=== PATIENT | female | born 1945 | race Two or more races ===

== ENCOUNTER 2024-12-16 11:44 | Emergency (ER) | payer OTHER ==
[~2024-12-16] VITALS: Ht 157.5 cm; Wt 95.4 kg
[2024-12-16 11:58] VITALS: TEMP 98.5
[2024-12-16 11:59] VITALS: BP 144/72; PULSE 71; RESP 17; RESP 18; O2SAT 97
[2024-12-16 12:27] LABS: Basophils # (auto) 0 10 ^3/uL (0-0.2); Basophils % (auto) 0.5 % (0.0-2.0); Eosinophils # (auto) 0.1 10 ^3/uL (0-0.8); Eosinophils % (auto) 1.9 % (0.0-7.0); Hematocrit 40.9 % (36.0-46.0); Hemoglobin 13.9 g/dL (12.2-16.2); Lymphocytes # (auto) 0.9 10 ^3/uL (0.4-5.4); Lymphocytes % (auto) 15.5 % (10.0-50.0); Mean Corpuscular Hemoglobin 31.9 pg (28.0-32.0); Mean Corpuscular Hgb Conc. 33.9 g/dL (32.0-36.0); Monocytes # (auto) 0.6 10 ^3/uL (0-1.3); Monocytes % (auto) 11.4 % (0.0-12.0); Neutrophils % (auto) 70.7 % (37.0-80.0); Platelet Count (auto) 259 10^3/uL (140-450); Red Blood Cells 4.35 10^6/uL (4.0-5.20); Red Cell Distribution Width 13.6 % (11.8-14.3); White Blood Cell 5.6 10^3/uL (4.4-10.8)
--- NOTE | 2024-12-16 12:28 | DVH ---
CHEST RADIOGRAPH Indication: CHEST PAIN Technique: Single frontal view of the chest was obtained COMPARISON: None FINDINGS: Lines and Tubes: None Lungs: Clear Pleura: No effusion. No pneumothorax. Cardiomediastinal contours: Unremarkable Bones: Unremarkable IMPRESSION: No acute disease.
[2024-12-16 12:37] LABS: Chloride 104 mmol/L (98-107); Potassium 3.6 mmol/L (3.5-5.1); Sodium 138 mmol/L (136-145)
[2024-12-16 12:38] LABS: Anion Gap 6 (5-15); Calcium 9.4 mg/dL (8.7-10.4); Carbon Dioxide 28 mmol/L (20-31)
[2024-12-16 12:43] LABS: BUN/Creatinine Ratio 19.4 (10.0-20.0); Blood Urea Nitrogen 14 mg/dL (9-23); Glucose 117 mg/dL (74-106)
[2024-12-16 13:25] VITALS: PULSE 69
--- NOTE | 2024-12-16 13:25 | ED.PDOC ---
HPI Comments 79-year-old female brought in by EMS presents with a chief complaint of chest pain x onset this morning with associated SOB upon exertion. Patient reports that her chest pain is described as pressure/tightness. Patient mentions that she is from [place] where [place] and is not used to being so high in altitude. Patient reports that she also feels anxious and does not know if her anxiety is contributing to it. Chief Complaint: Chest Pain Time Seen by MD: 13:15 Reviewed Notes: Medications, Allergies Allergies: Coded Allergies: Morphine (Verified Allergy, Unknown, 12/16/24) Information Source: Patient Mode of Arrival: EMS Severity: Moderate Timing: Hours Duration: Since onset Prehospital treatment: None Location: Substernal Radiation: No Radiation Quality: Pressure Onset: At Rest, With Light Exertion Cardiac Risk Factors: None PE Risk Factors: None History of: None Past Medical History PAST MEDICAL HISTORY: Denies Surgical History: Denies all surgeries COMMUNITY FUNDRAISER History: Denies all COMMUNITY FUNDRAISER Hx Family History Family History: Reviewed,noncontributory to illness Social History Smoker: Non-Smoker Alcohol: Denies ETOH Use Drugs: Denies Drug Use Lives In: Home Constitutional: denies: chills, diaphoresis, fatigue, fever, malaise, sweats, weakness, others EENTM: denies: blurred vision, double vision, ear bleeding, ear discharge, ear drainage, ear pain, ear ringing, eye pain, eye redness, hearing loss, mouth pain, mouth swelling, nasal discharge, nose bleeding, nose congestion, nose pain, photophobia, tearing, throat pain, throat swelling, voice changes, others Respiratory: reports: SOB with excertion; denies: cough, hemoptysis, orthopnea, SOB at rest, shortness of breath, stridor, wheezing, others Cardiovascular: reports: chest pain; denies: dizzy spells, diaphoresis, Dyspnea on exertion, edema, irregular heart beat, left arm pain, lightheadedness, palpitations, PND, syncope, others Gastrointestinal: denies: abdomen distended, abdominal pain, blood streaked bowels, constipated, diarrhea, dysphagia, difficulty swallowing, hematemesis, melena, nausea, poor appetite, poor fluid intake, rectal bleeding, rectal pain, vomiting, others Genitourinary: denies: abnormal vagina bleeding, burning, dyspareunia, dysuria, flank pain, frequency, hematuria, incontinence, pain, , vagina discharge, urgency, others Neurological: denies: dizziness, fainting, headache, left sided numbness, left sided weakness, numbness, paresthesia, pre-existing deficit, right sided numbne ss, right sided weakness, seizure, speech problems, tingling, tremors, weakness, others Musculoskeletal: denies: back pain, gout, joint pain, joint swelling, muscle pain, muscle stiffness, neck pain, others Integumetry: denies: bruises, change in color, change in hair/nails, dryness, laceration, lesions, lumps, rash, wounds, others Allergic/Immunocompromised: denies: Difficulty Healing, Frequent Infections, Hives, Itching, others Hematologic/Lymphatic: denies: anemia, blood clots, easy bleeding, easy bruising, swollen glands, others Endocrine: denies: excessive hunger, excessive sweating, excessive thirst, excessive urination, flushing, intolerance to cold, intolerance to heat, unexplained weight gain, unexplained weight loss, others Psychiatric: denies: anxiety, bipolar disorder, depression, hopeless, panic disorder, schizophrenia, sleepless, suicidal, others All Other Systems: Reviewed and Negative Physical Exam General Appearance: No Apparent Distress, Normal HEENT: Normal ENT Inspection Neck: NOT DONE Respiratory: Chest Non-Tender, Lungs Clear, No Accessory Muscle Use, No Respiratory Distress, Normal Breath Sounds Cardiovascular: No Edema, No JVD, No Murmur, No Gallop, Normal Peripheral Pulses, Regular Rate/Rhythm Breast Exam: Deferred Gastrointestinal: Non Tender, Soft Genitalia: Deferred Pelvic: Deferred Rectal: Deferred Extremities: No calf tenderness, Normal capillary refill, Normal inspection, Normal range of motion, Non-tender, No pedal edema Neurologic: Alert, exerciser II-XII nml as Tested, No Motor Deficits, Normal Affect, Normal Mood, No Sensory Deficits Cerebellar Function: Normal Reflexes: NOT DONE Skin: Dry, Normal Color Lymphatic: NOT DONE EKG EKG : Pulse Rate (adult): 69 [place]: Normal Cardiac Rhythm: NSR Block: RBBB Hypertrophy: None ST: Normal Was a procedure done? Was a procedure done?: No CP Differential Dx Differential Diagnosis: A-fib, A-Flutter, Anxiety / Panic Attack, AV Block 1st Degree, AV Block 2nd Degree, Electrolyte Disorder, Hypoxia, MAT, Pacemaker Malfunction, Pulmonary Embolus, PVC's, Renal Failure, Torsades De Pointes, V-Fib X-Ray, Labs, Meds, VS Vital Signs Date Time Temp Pulse Resp B/P (MAP) Pulse Ox O2 Delivery O2 Flow Rate FiO2 12/16/24 13:25 69 12/16/24 11:59 98.3 72 18 144/72 (96) 97 12/16/24 11:59 71 17 97 Room Air* 0 21 12/16/24 11:58 98.5 71 17 155/67 (96) 97 98.5 12/16/24 11:49 70 Lab Test 12/16/24 12:15 12/16/24 12:06 Range/Units Troponin I High Sensitivity < 3 L 3 L </=34 ng/L White Blood Count 5.6 4.4-10.8 10^3/uL Red Blood Count 4.35 4.0-5.20 10^6/uL Hemoglobin 13.9 12.2-16.2 g/dL Hematocrit 40.9 36.0-46.0 % Mean Corpuscular Volume 94.0 80.0-100.0 fL Mean Corpuscular Hemoglobin 31.9 28.0-32.0 pg Mean Corpuscular Hemoglobin Concent 33.9 32.0-36.0 g/dL Red Cell Distribution Width 13.6 11.8-14.3 % Platelet Count 259 140-450 10^3/uL Mean Platelet Volume 8.1 6.9-10.8 fL Neutrophils (%) (Auto) 70.7 37.0-80.0 % Lymphocytes (%) (Auto) 15.5 10.0-50.0 % Monocytes (%) (Auto) 11.4 0.0-12.0 % Eosinophils (%) (Auto) 1.9 0.0-7.0 % Basophils (%) (Auto) 0.5 0.0-2.0 % Neutrophils # (Auto) 4.0 1.6-8.6 10 ^3/uL Lymphocytes # (Auto) 0.9 0.4-5.4 10 ^3/uL Monocytes # (Auto) 0.6 0-1.3 10 ^3/uL Eosinophils # (Auto) 0.1 0-0.8 10 ^3/uL Basophils # (Auto) 0 0-0.2 10 ^3/uL Nucleated Red Blood Cells 0.0 % Sodium Level 138 136-145 mmol/L Potassium Level 3.6 3.5-5.1 mmol/L Chloride Level 104 98-107 mmol/L Carbon Dioxide Level 28 20-31 mmol/L Anion Gap 6 5-15 Blood Urea Nitrogen 14 9-23 mg/dL Creatinine 0.72 0.550-1.02 mg/dL Glomerular Filtration Rate Calc 86 >90 mL/min BUN/Creatinine Ratio 19.4 10.0-20.0 Serum Glucose 117 H 74-106 mg/dL Calcium Level 9.4 8.7-10.4 mg/dL X-Ray, Labs, Meds, VS Comment This 75-year-old female who is visiting the area from [place]. She states she was sensitive to altitude and is not used to the altitude here. She feels somewhat nauseous, dizzy and short of breath. She he was no other complaints such as fever, chills, sweats, nausea or vomiting. Her workup here has benign including 2- tropes. Believe the patient was having difficulty with the altitude. She had provided 1 dose of acetazolamide and then discharged home. She would follow up with the PCP in next 1 2 days return to the ER for any new/worse/worsening symptoms. Time of 1ST Reevaluation: 13:45 Reevaluation 1ST: Unchanged Patient Education/Counseling: Diagnosis, Treatment, Prognosis Family Education/Counseling: Diagnosis, Treatment, Prognosis Departure 1 Departure Time of Disposition: 14:19 Impression: Primary Impression: Chest pain Additional Impression: Altitude sickness Disposition: 01 HOME / SELF CARE / HOMELESS Condition: Good Critical Care Note Critical Care Time?: No Stability Stability form required: No Heart Score Heart Score: Heart Score Response (Comments) Value History Slightly Suspicious 0 EKG Normal 0 Age >65 2 Risk Factors 1 or 2 risk factors 1 Troponin Normal limit 0 Total 3 I personally scribed for ALEX MCKEON MD ([email or web address]) on 12/16/24 at 13:25. Electronically submitted by Mina Del Angel ([email or web address]). ALEX MCKEON MD Dec 16, 2024 13:25
[2024-12-16] MEDS: acetaZOLAMIDE 250 MG TAB PO ONE (14:58)
--- NOTE | 2024-12-16 18:40 | ECG ---
[facility] Test Date: 2024-12-16 Test Time: 12:50:13 Pat Name: CUCA FITZGERALD Department: ED Room: Gender: F Lookback Coordinator: RANDY : 1945 Requested By: SHAY PASCUAL Order Number: [id number] Reading MD: Shawn Benitez Measurements Intervals [place] Rate: 69 P: 68 MO: 174 QRS: 11 QRSD: 144 T: 19 QT: 419 QTc: 449 Interpretive Statements Sinus rhythm Right bundle branch block Electronically Signed On 12-19-2024 8:21:45 PST by Shawn Benitez Please click the below link to view image of tracing.
--- NOTE | 2024-12-16 18:40 | ECG ---
[facility] Test Date: 2024-12-16 Test Time: 11:49:04 Pat Name: CUCA FITZGERALD Department: ED Room: Gender: F Side Splitter: RANDY : 1945 Requested By: SHAY PASCUAL Order Number: [id number] Reading MD: Shawn Benitez Measurements Intervals [place] Rate: 70 P: 55 AR: 175 QRS: 0 QRSD: 149 T: 25 QT: 416 QTc: 449 Interpretive Statements Sinus rhythm Right bundle branch block Electronically Signed On 12-19-2024 8:21:40 PST by Shawn Benitez Please click the below link to view image of tracing.
== END 2024-12-16 15:02 | disposition home or self-care (01) ==
LOC: EDBD 11:44 → ER 11:47
DX: R07.9 Chest pain, unspecified (principal); T70.29XA Other effects of high altitude, initial encounter; Z88.5 Allergy status to narcotic agent; X58.XXXA Exposure to other specified factors, initial encounter
CPT/HCPCS: 36415; 71045; 80048; 84484; 85025; 93005